=== PATIENT | female | born 1955 | race Asian ===

== ENCOUNTER 2019-08-22 11:41 | Emergency (ER) | payer OTHER ==
[~2019-08-22] VITALS: Ht 162.6 cm; Wt 68.0 kg
--- NOTE | 2019-08-22 11:48 | NUR ---
AMBULATED TO ER BED 1
[2019-08-22 11:56] VITALS: BP 135/78
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
--- NOTE | 2019-08-22 13:03 | NUR ---
pt resting in bed, no new needs at this time.
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
[2019-08-22 13:52] VITALS: BP 135/78
--- NOTE | 2019-08-22 13:53 | NUR ---
Patient discharged with v/s stable. Written and verbal after care instructions given and explained. Patient verbalized understanding. Ambulatory with steady gait. No RX given. All questions addressed prior to discharge. Advised to follow up with PMD.
== END 2019-08-22 13:52 | disposition home or self-care (01) ==
LOC: MED 11:41
DX: J06.9 Acute upper respiratory infection, unspecified (principal)
CPT/HCPCS: 87081; 99283

== ENCOUNTER 2021-09-06 20:43 | Emergency (ER) | payer OTHER ==
[~2021-09-06] VITALS: Ht 167.6 cm; Wt 70.4 kg
[2021-09-06 21:03] VITALS: BP 128/87
--- NOTE | 2021-09-06 21:08 | NUR ---
AMBULATED TO BED #7
--- NOTE | 2021-09-06 21:11 | NUR ---
ER MD AT BEDSIDE ASSESSING PT
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
[2021-09-06] MEDS ORDERED: HYDROcodone/APAP 5/325 MG 1 TAB TAB PO ONE (22:10)
[2021-09-06 22:30] VITALS: BP 128/87
--- NOTE | 2021-09-06 22:31 | NUR ---
Patient discharged with v/s stable. Written and verbal after care instructions given and explained. Patient verbalized understanding. Ambulatory with steady gait. All questions addressed prior to discharge. Advised to follow up with PMD. VSS, A/OX4, UNLABORED BREATHING, AMBULATORY, AND CALM DEMEANOR.
== END 2021-09-06 22:28 | disposition home or self-care (01) ==
LOC: MED 20:43
DX: S10.93XA Contusion of unspecified part of neck, initial encounter (principal); S40.011A Contusion of right shoulder, initial encounter; S20.20XA Contusion of thorax, unspecified, initial encounter; I10 Essential (primary) hypertension; E07.9 Disorder of thyroid, unspecified; V49.40XA Driver injured in collision with unspecified motor vehicles in traffic accident, initial encounter; Y93.89 Activity, other specified; Y92.89 Other specified places as the place of occurrence of the external cause; Y99.8 Other external cause status
CPT/HCPCS: 71046; 72040; 73030; 99284